=== PATIENT | male | born 1980 | race Caucasian/White ===

== ENCOUNTER 2017-02-16 00:23 | Emergency (ER) | payer OTHER, SELFPAY ==
[2017-02-16] MEDS ORDERED: traMADol HCl 50 MG TAB ONE (01:01)
--- NOTE | 2017-02-16 08:36 | RAD ---
PA AND LATERAL CHEST XRAY: DATE: 02/16/17. HISTORY: Patient bucked off of a horse and is complaining of right-sided torso pain. COMPARISON: 01/19/12. FINDINGS: Cardiac silhouette and pulmonary vasculature are within normal limits. There is bibasilar atelectasi s with elevation of the right hemidiaphragm. No pneumothorax or pleural effusion is appreciated. No obvious rib fracture is seen. No other findings. IMPRESSION: 1. Bibasilar atelectasis. 2. Mild elevation of right hemidiaphragm. POS: [facility]
== END 2017-02-16 01:10 | disposition home or self-care (01) ==
LOC: SCSER 00:23
DX: S23.41XA Sprain of ribs, initial encounter (principal); K21.9 Gastro-esophageal reflux disease without esophagitis; W19.XXXA Unspecified fall, initial encounter
CPT/HCPCS: 71020

== ENCOUNTER 2018-09-26 08:47 | Outpatient (CLI) | payer BC ==
--- NOTE | 2018-09-26 09:30 | ULT ---
US Gallbladder RUQ: 09/26/2018 12:00 AM CLINICAL HISTORY: Chronic acid gastroesophageal reflux. Palpable knot in the right upper quadrant of the abdomen. STUDY: Limited right upper quadrant ultrasound of abdomen. COMPARISON: None. FINDINGS: Liver: Size: Normal. Echogenicity: Hyperechoic consistent with hepatic steatosis. Contour: Smooth. Mass: None. Bile ducts: No intrahepatic or extrahepatic biliary dilatation. Common bile duct measures 6 mm. Gallbladder: Normal. Pancreas: Head and body appear normal; tail obscured by bowel gas. Right kidney: No pelvicalyceal dilatation. Right kidney measuring 10.9 cm in length. IMPRESSION: Fatty liver
== END 2018-09-26 08:48 | disposition home or self-care (01) ==
LOC: SCSULT 08:47
PROVIDERS: ATTEND Family Medicine
DX: K21.0 Gastro-esophageal reflux disease with esophagitis (principal); K76.0 Fatty (change of) liver, not elsewhere classified
CPT/HCPCS: 76705

== ENCOUNTER 2019-06-11 16:10 | Outpatient (CLI) | payer BC | END 2019-06-11 16:11 | disposition home or self-care (01) | LOC: CTENTCT 16:10 | PROVIDERS: ATTEND Otolaryngology Plastic Surgery within the Head & Neck | DX: J32.9 Chronic sinusitis, unspecified (principal) | CPT/HCPCS: 70486 ==